=== PATIENT | female | born 1945 | race Caucasian/White ===

== ENCOUNTER → 2018-11-13 | Outpatient (CLI) | payer MEDICARE, OTHER ==
--- NOTE | 2018-11-13 22:23 | REP ---
Clinical: Cervicalgia Technique: AP, lateral, open mouth views of the cervical spine. Findings: Alignment and lordosis maintained. Early advanced degenerative disc osteophyte complex at C4-5 and C5-6 includes endplate sclerosis/irregularity early marginal spurring and moderate disc space narrowing. Remainder examination demonstrates mild multilevel degenerative changes. Impression: Mild/moderate multilevel degenerative changes primarily involving C4-5 and C5-6. Electronically Signed by Roger Braun MD 11/13/2018 10:15 P
== END ==
LOC: M ADAMS 16:07
PROVIDERS: ATTEND Physician Assistant
DX: M50.322 Other cervical disc degeneration at C5-C6 level (principal); M50.321 Other cervical disc degeneration at C4-C5 level

== ENCOUNTER 2021-11-03 21:11 | Emergency (ER) | payer MEDICARE ==
[~2021-11-03] VITALS: Ht 167.6 cm; Wt 88.1 kg
[2021-11-03] MEDS ORDERED: ASPIRIN 81 MG CHEW TABLET PO ONE (22:05)
[2021-11-03] MEDS ORDERED: NITROGLYCERIN 0.4 MG SUBL TABLET SL PRN (22:05)
[2021-11-03] MEDS ORDERED: BUSP10TA PO ×2 (22:27)
[2021-11-03] MEDS ORDERED: CITA40TA7 PO (22:27)
[2021-11-03] MEDS ORDERED: PROBCAP2 PO (22:27)
[2021-11-03] MEDS ORDERED: LISI2.5T9 PO (22:27)
[2021-11-03] MEDS ORDERED: PROT20TA11 PO (22:27)
[2021-11-03] MEDS ORDERED: B-10TAB2 PO (22:27)
[2021-11-03] MEDS ORDERED: PRAV20TA2 PO (22:27)
[2021-11-03] MEDS ORDERED: ECOT81TA5 PO (22:27)
[2021-11-03] MEDS ORDERED: vit d PO (22:27)
[2021-11-03] MEDS ORDERED: PLAV1TAB2 PO (22:27)
[2021-11-03] MEDS ORDERED: NITR0.4S14 SL (22:27)
[2021-11-03 22:28] LABS: BASO % 0.6 % (0.0-1.0); EOS # 0.1 10^3/uL (0.0-0.5); EOS % 2.4 % (0.0-3.0); HEMATOCRIT 36.2 % (36.0-47.0); LYMPH # 1.8 10^3/uL (1.5-5.0); LYMPH % 35.8 % (24.0-44.0); MEAN CORPUSCULAR HEMOGLOBIN 31.3 pg (27.0-33.0); MEAN CORPUSCULAR HGB CONC 33.1 g/dl (32.0-36.5); MEAN CORPUSCULAR VOLUME 94.5 fl (80.0-96.0); MONO # 0.6 10^3/uL (0.0-0.8); MONO % 11.4 % (2.0-8.0); NEUTROPHILS # 2.4 10^3/uL (1.5-8.5); NEUTROPHILS % 49.6 % (36.0-66.0); PLATELET COUNT, AUTOMATED 171 10^3/uL (150-450); RED BLOOD COUNT 3.83 10^6/uL (4.00-5.40); WHITE BLOOD COUNT 4.9 10^3/uL (4.0-10.0)
[2021-11-03 22:54] LABS: CK-MB VALUE MASS 2.2 NG/ML (<3.6); MB/CK RELATIVE INDEX 1.49 (< OR =4)
[2021-11-03 22:57] LABS: CALCIUM LEVEL 8.7 MG/DL (8.8-10.2); CREATININE FOR GFR 1.23 MG/DL (0.55-1.30); GLOMERULAR FILTRATION RATE 45.3 (>39); POTASSIUM SERUM 4.4 MEQ/L (3.5-5.1)
[2021-11-04 00:13] LABS: CK-MB VALUE MASS 2.2 NG/ML (<3.6); MB/CK RELATIVE INDEX 1.67 (< OR =4)
[2021-11-04 00:30] VITALS: BP 148/71
[2021-11-04] MEDS ORDERED: ELIQ5TAB PO (01:21)
[2021-11-04] MEDS ORDERED: APIXABAN 5 MG TAB (ELIQUIS) PO ONE (02:00)
== END 2021-11-04 01:38 | disposition home or self-care (01) ==
LOC: M ED 21:11 → EDBD 21:11 → M ED 11-04 01:38
DX: I48.91 Unspecified atrial fibrillation (principal); I25.10 Atherosclerotic heart disease of native coronary artery without angina pectoris; I25.2 Old myocardial infarction; I10 Essential (primary) hypertension; E78.5 Hyperlipidemia, unspecified; K21.9 Gastro-esophageal reflux disease without esophagitis; Z95.5 Presence of coronary angioplasty implant and graft; Z98.61 Coronary angioplasty status; Z82.49 Family history of ischemic heart disease and other diseases of the circulatory system

== ENCOUNTER 2022-09-15 12:42 | Emergency (ER) | payer MEDICARE ==
[~2022-09-15] VITALS: Ht 167.6 cm; Wt 86.1 kg
[~2022-09-15 12:42] MED LIST: B-10TAB2 PO; BUSP10TA PO; CITA40TA7 PO; CLOP75TA99 PO; ECOT81TA5 PO; ELIQ5TAB PO; LISI2.5T9 PO; NITR0.4S14 SL; PRAV20TA2 PO; PROBCAP2 PO; PROT20TA11 PO; vit d PO
[2022-09-15] MEDS ORDERED: XANA1TAB2 PO (13:28)
[2022-09-15] MEDS ORDERED: NORV5TAB PO (13:28)
[2022-09-15] MEDS ORDERED: METO1TAB87 PO (13:28)
[2022-09-15] MEDS ORDERED: METO1TAB32 PO (14:20)
[2022-09-15] MEDS ORDERED: ELIQ5TAB PO (14:20)
[2022-09-15 14:21] LABS: HEMATOCRIT 39.6 % (36.0-47.0); HEMOGLOBIN 13.2 g/dl (12.0-15.5); MEAN CORPUSCULAR HEMOGLOBIN 31.7 pg (27.0-33.0); MEAN CORPUSCULAR HGB CONC 33.3 g/dl (32.0-36.5); PLATELET COUNT, AUTOMATED 194 10^3/uL (150-450); RED BLOOD COUNT 4.17 10^6/uL (4.00-5.40); WHITE BLOOD COUNT 5.5 10^3/uL (4.0-10.0)
[2022-09-15] MEDS ORDERED: BACI1CAP PO (14:22)
[2022-09-15] MEDS ORDERED: VITMTA PO (14:22)
[2022-09-15] MEDS ORDERED: PRAV40TA2 PO (14:22)
[2022-09-15] MEDS ORDERED: HOME MED LIST COMPLETE! XX SCH (14:25)
[2022-09-15 14:46] LABS: ETHYL ALCOHOL (ETHANOL) < 0.003 % (0.000-0.010)
[2022-09-15 14:48] LABS: SALICYLATE LEVEL < 3.0 MG/DL (<30)
[2022-09-15 14:49] LABS: ACETAMINOPHEN LEVEL < 2.0 UG/ML (10.0-20.0); ALBUMIN 3.7 G/DL (3.2-5.2); ALKALINE PHOSPHATASE 58 U/L (46-116); ALT/SGPT 41 U/L (7.0-40); AST/SGOT 31 U/L (<34); BILIRUBIN,DIRECT 0.1 MG/DL (<0.4); BILIRUBIN,TOTAL 0.4 MG/DL (0.3-1.2); BLOOD UREA NITROGEN 12 MG/DL (9-23); CALCIUM LEVEL 9.3 MG/DL (8.3-10.6); CARBON DIOXIDE LEVEL 26 MMOL/L (20-31); CHLORIDE LEVEL 106 MMOL/L (98-107); CREATININE FOR GFR 1.21 MG/DL (0.55-1.30); GLOMERULAR FILTRATION RATE 46.2 (>39); GLUCOSE, FASTING 102 MG/DL (74-106); POTASSIUM SERUM 4.3 MMOL/L (3.5-5.1); SODIUM LEVEL 135 MMOL/L (136-145); TOTAL PROTEIN 6.8 G/DL (5.7-8.2)
[2022-09-15 14:52] LABS: THYROID STIMULATING HORMONE 1.882 uIU/ML (0.55-4.78)
[2022-09-15] MEDS ORDERED: ONDANSETRON 4MG 2ML VIAL IV ONE (15:45)
[2022-09-15] MEDS ORDERED: NS 1,000 ML IV ONE (15:45)
[2022-09-15] MEDS ORDERED: ISOVUE-370 76% 100ML VIAL As Ordered ONE (15:49)
[2022-09-15 16:10] LABS: MAGNESIUM LEVEL 2.1 MG/DL (1.8-2.4)
[2022-09-15] MEDS ORDERED: LORazepam 0.5 MG TAB PO STA (16:52)
[2022-09-15] MEDS ORDERED: SUCRALFATE SUSP 1GM/10ML UD PO ONE (18:50)
[2022-09-15] MEDS ORDERED: PANTOPRAZOLE 40MG TAB (PROTONIX) PO ONE (18:50)
[2022-09-15] MEDS ORDERED: ZOLO25TA PO (19:11)
[2022-09-15] MEDS ORDERED: ATIV1TAB10 PO (19:12)
[2022-09-15] MEDS ORDERED: CARA1TAB6 PO (19:14)
[2022-09-15 19:45] VITALS: BP 172/77
== END 2022-09-15 20:05 | disposition home or self-care (01) ==
LOC: M ED 12:42
DX: F41.9 Anxiety disorder, unspecified (principal); I10 Essential (primary) hypertension; K21.9 Gastro-esophageal reflux disease without esophagitis; F32.9 Major depressive disorder, single episode, unspecified; Z79.02 Long term (current) use of antithrombotics/antiplatelets; Z79.899 Other long term (current) drug therapy
CPT/HCPCS: 74177; 80048; 80076; 80143; 82077; 83735; 84443; 85027; 87635; 96361; 96374; 99284; J2405; Q9967